=== PATIENT | female | born 1950 | race Caucasian/White ===

== ENCOUNTER → 2017-04-20 | Outpatient (CLI) | payer OTHER | LOC: FIMAGING 12:15 | PROVIDERS: ATTEND Family Medicine | DX: Z12.31 Encounter for screening mammogram for malignant neoplasm of breast (principal) | CPT/HCPCS: G0202 ==

== ENCOUNTER → 2017-07-22 | Outpatient (CLI) | payer OTHER | LOC: FIMAGING 09:00 | PROVIDERS: ATTEND Family Medicine | DX: Z13.820 Encounter for screening for osteoporosis (principal); M81.0 Age-related osteoporosis without current pathological fracture ==

== ENCOUNTER → 2018-07-08 | Outpatient (CLI) | payer OTHER | LOC: FIMAGING 09:17 | PROVIDERS: ATTEND Family Medicine | DX: Z12.31 Encounter for screening mammogram for malignant neoplasm of breast (principal) ==

== ENCOUNTER → 2018-07-26 | Outpatient (CLI) | payer OTHER | LOC: BMCIMAGING 10:54 | PROVIDERS: ATTEND Internal Medicine Rheumatology | DX: M24.841 Other specific joint derangements of right hand, not elsewhere classified (principal); M24.842 Other specific joint derangements of left hand, not elsewhere classified ==

== ENCOUNTER → 2018-08-12 | Outpatient (CLI) | payer OTHER ==
[~2018-08-12] MED LIST: GADOBUTROL 10 ML VIAL IVP ONE
== END ==
LOC: FIMAGING 15:00
PROVIDERS: ATTEND Internal Medicine Rheumatology
DX: M85.642 Other cyst of bone, left hand (principal)
CPT/HCPCS: 73220; A9585; 82565-PO